=== PATIENT | female | born 1995 | race Caucasian/White ===

== ENCOUNTER 2018-07-25 21:54 | Emergency (ER) | payer SELFPAY ==
[~2018-07-25] VITALS: Ht 157.5 cm; Wt 55.7 kg
[2018-07-25 21:59] VITALS: Ht 157.5 cm; Wt 55.7 kg
--- NOTE | 2018-07-26 01:59 | ERD ---
ER Documentation Chief Complaint Chief Complaint UTI symptoms for months, worse today. low BP, pelvic pain HPI This is a 22-year-old female presents to emerge department with complaints of dysuria, yellowish to greenish vaginal (odorous) discharge that is on and off for a couple of months. Patient stated that she is concerned that she has a kidney infection. Stated that she has for urinary tract infection in the last year. Sexually active with one partner only. Partner has no symptoms. LMP: Stated that she has an IUD. G0, . Denies headache, head injury, loss of consciousness, dizziness, neck pain, neck stiffness, throat pain, difficulty swallowing, difficulty breathing lying flat, shoulder pain, chest pain, back pain, abdominal pain, nausea, vomiting, constipation, diarrhea, urinary symptoms, or possibility being , loss of bowel and bladder control, trauma, injury, falls, difficulty walking due to pain, numbness or tingling sensation, calf pain, recent travel, recent major surgery in the last 3 weeks, calf pain, recent long travel, recent exposure to any illness, recent antibiotic use in the last 3 months, fever, chills, seizures. Past medical history: Surgical history: Social: Denies smoking, use of alcoholic beverages, use of illegal drugs. ROS All systems reviewed and are negative except as per history of present illness. Medications Home Meds Active Scripts Metronidazole* (Flagyl*) 500 Mg Tablet, 500 MG PO TID for 7 Days, TAB Prov:PASILABAN,KLAR F 07/26/18 Ondansetron Hcl* (Zofran*) 4 Mg Tablet, 4 MG PO Q8H PRN for NAUSEA AND/OR VOMITING, #30 TAB Prov:PASILABAN,KLAR F 07/26/18 Ibuprofen* (Motrin*) 600 Mg Tab, 600 MG PO Q6H PRN for PAIN AND OR ELEVATED TEMP, #30 TAB Prov:PASILABAN,KLAR F 07/26/18 Sulfamethoxazole/Trimethoprim* (Bactrim Ds* Tablet) 1 Each Tablet, 1 TAB PO BID for 7 Days, #14 TAB Prov:PASILABAN,KLAR F 07/26/18 Allergies Allergies: Coded Allergies: No Known Allergy (Unverified , 07/26/18) PMhx/Soc Medical and Surgical Hx: pt denies Medical Hx, pt denies Surgical Hx Hx Alcohol Use: No Hx Substance Use: No Hx Tobacco Use: No Smoking Status: Never smoker Physical Exam Vitals Physical Exam Const: No acute distress Head: Atraumatic Eyes: Normal Conjunctiva ENT: Normal External Ears, Nose and Mouth. Neck: Full range of motion. No meningismus. Resp: Clear to auscultation bilaterally Cardio: Regular rate and rhythm, no murmurs Abd: Soft, non tender, non distended. Normal bowel sounds. Negative Meade sign. Negative Matthieu sign (heel jar test). Negative psoas sign. Negative Rovsing sign. Able to jump 10 times without developing abdominal pain. No CVA tenderness. Skin: No petechiae or rashes. Color appears normal for ethnicity. No skin tenting. No signs of severe dehydration. Back: No midline or flank tenderness Ext: No cyanosis, or edema Neur: Awake and alert. No neurological deficits. Psych: Normal Mood and Affect Results 24 hrs Laboratory Tests Test 07/26/18 02:12 07/26/18 02:14 07/26/18 02:16 Urine Color YELLOW Urine Clarity SLIGHTLY CLOUDY Urine pH 5.0 Urine Specific [place] 1.029 Urine Ketones TRACE mg/dL Urine Nitrite NEGATIVE mg/dL Urine Bilirubin NEGATIVE mg/dL Urine Urobilinogen 1+ mg/dL Urine Leukocyte Esterase TRACE Gordon/ul Urine Microscopic RBC 4 /HPF Urine Microscopic WBC 15 /HPF Urine Squamous Epithelial Cells FEW /HPF Urine Calcium Oxalate Crystals MODERATE /HPF Urine Bacteria FEW /HPF Urine Mucus FEW /HPF Urine Hemoglobin NEGATIVE mg/dL Urine Glucose NEGATIVE mg/dL Urine Total Protein NEGATIVE mg/dl Chlamydia trachomatis RNA (TMA) NOT DETECTED Chlamydia/GC Comment SEE NOTE Neisseria gonorrhoeae RNA (TMA) NOT DETECTED POC Beta HCG, Qualitative NEGATIVE White Blood Count 7.4 10^3/ul Red Blood Count 4.27 10^6/ul Hemoglobin 13.7 g/dl Hematocrit 39.7 % Mean Corpuscular Volume 93.0 fl Mean Corpuscular Hemoglobin 32.1 pg Mean Corpuscular 34.5 g/dl Hemoglobin Concent Red Cell Distribution Width 11.5 % Platelet Count 271 10^3/UL Mean Platelet Volume 9.5 fl Immature Granulocytes % 0.100 % Neutrophils % 45.2 % Lymphocytes % 44.6 % Monocytes % 8.4 % Eosinophils % 1.2 % Basophils % 0.5 % Nucleated Red Blood Cells % 0.0 /100WBC Immature Granulocytes # 0.010 10^3/ul Neutrophils # 3.3 10^3/ul Lymphocytes # 3.3 10^3/ul Monocytes # 0.6 10^3/ul Eosinophils # 0.1 10^3/ul Basophils # 0.0 10^3/ul Nucleated Red Blood Cells # 0.0 10^3/ul Sodium Level 143 mmol/L Potassium Level 3.7 mmol/L Chloride Level 108 mmol/L Carbon Dioxide Level 27 mmol/L Anion Gap 8 Blood Urea Nitrogen 12 mg/dl Creatinine 0.67 mg/dl Est Glomerular Filtrat > 60 mL/min Rate mL/min Glucose Level 87 mg/dl Calcium Level 9.4 mg/dl Total Bilirubin 0.6 mg/dl Direct Bilirubin 0.00 mg/dl Indirect Bilirubin 0.6 mg/dl Aspartate Amino 20 IU/L Transf (AST/SGOT) Alanine 16 IU/L Aminotransferase (ALT/SGPT) Alkaline Phosphatase 69 IU/L Total Protein 7.6 g/dl Albumin 4.6 g/dl Globulin 3.00 g/dl Albumin/Globulin Ratio 1.53 Amylase Level 104 U/L Lipase 46 U/L Current Medications Medications Dose Sig/Lizbet Start Time Status Last (Trade) Ordered Route PRN Stop Time Admin Dose Reason Admin Ceftriaxone 250 mg ONCE ONCE 07/26/18 DC 07/26/18 Sodium IM 03:30 03:35 (Rocephin) 07/26/18 03:31 1,000 mg ONCE ONCE 07/26/18 DC 07/26/18 Azithromycin PO 03:30 03:35 (Zithromax) 07/26/18 03:31 Procedures/MDM Diagnostic tests: POC urine : Negative. Urinalysis: Trace of leukocytes. WBC is 15. Gonorrhea and Chlamydia: Sent. Blood works: Reviewed. Treatment: Ceftriaxone IM. Azithromycin. Re-evaluation: No allergic reaction. Denies abdominal pain. No CVA tenderness. Ambulatory with steady gait and without pain to abdomen. Differential diagnosis I have low suspicion for pancreatitis, cholecystitis, diverticulitis, ovarian torsion, ovarian cyst rupture, obstructing kidney stone, septic stone, pyelonephritis. Final diagnosis: STD exposure. STD symptoms. Gonorrheal symptoms. Prescription: Flagyl. Bactrim. Pyridium. Motrin. Follow-up with PCP in the next 24-48 hours. PCP to refer patient to creative services director in the next 4 to 5 days. Come back here in the emergency department for any new symptoms or any worsening symptoms. All questions and concerns were answered. Patient and family members verbalized understanding and agreed with plan of care. Hemodynamically stable on discharge. Departure Diagnosis: Primary Impression: STD exposure Additional Impressions: STD (female) UTI (urinary tract infection) Chlamydia infection Condition: Stable Additional Instructions: Follow-up with PCP in the next 24-48 hours. PCP to refer patient to creative services director in the next 4 to 5 days. Come back here in the emergency department for any new symptoms or any worsening symptoms. LIZETH CHAMBERS July 26, 2018 01:59
[2018-07-26] MEDS ORDERED: SULF1TAB31 PO (03:19)
[2018-07-26] MEDS ORDERED: ONDA4TAB8 PO (03:20)
[2018-07-26] MEDS ORDERED: IBUP-1542 PO (03:20)
[2018-07-26] MEDS ORDERED: METR500T PO (03:20)
[2018-07-26] MEDS ORDERED: AZITHROMYCIN 500 MG TAB PO ONE (03:30)
[2018-07-26] MEDS ORDERED: CEFTRIAXONE 250 MG INJ IM ONE (03:30)
[2018-07-26 03:50] VITALS: BP 120/80; PULSE 68; RESP 17
== END 2018-07-26 03:50 | disposition home or self-care (01) ==
LOC: FTE 21:54
DX: N39.0 Urinary tract infection, site not specified (principal); A74.9 Chlamydial infection, unspecified; R10.2 Pelvic and perineal pain; Z20.2 Contact with and (suspected) exposure to infections with a predominantly sexual mode of transmission
CPT/HCPCS: 80053; 81001; 81025; 82150; 83690; 85025; 87086; 87591; 96372; 99284; J0696